=== PATIENT | female | born 1955 | race Caucasian/White ===

== ENCOUNTER 2024-06-03 13:51 | Inpatient (IN) ==
[2024-06-03] MEDS ORDERED: IOPAMIDOL 100 ML BOTTLE IV ONE ×2 (13:52)
[2024-06-03 14:44] LABS: Appearance,Urine Clear (Clear); Bacteria,Urine Few /hpf (0); Bilirubin,Urine Negative (Negative); Color,Urine Yellow; Glucose,Urine (UA) 100 mg/dL (Negative); Ketones,Urine Negative (Negative); Leukocyte Esterase,Urine Trace /uL (Negative); Nitrate,Urine Negative (Negative); PH,Urine 6.5 (5.0-9.0); Protein,Urine 100 mg/dL (Negative); Specific Gravity,Urine 1.015 (1.000-1.035); Urine Blood Trace-intact ery/mcL (Negative); Urine RBC 1 /hpf (0-3); Urine Squamous Epithelial Cell 13 /hpf (0-4); Urine WBC 8 /hpf (0-4); Urobilinogen,Urine Normal
[2024-06-03] MEDS: 0.9 % SODIUM CHLORIDE 1,000 ML IV ONE ×2 (15:28→19:08)
[2024-06-03] MEDS: HYDROmorphone 1 MG/ML SYRINGE IV ONE (15:28)
[2024-06-03] MEDS: ONDANSETRON 4 MG/2 ML VIAL IV ONE (15:29)
[2024-06-03 16:00] LABS: Basophils # (Auto) 0.01 K/mcL (0.00-0.30); Basophils % (Auto) 0.2 % (0.0-2.0); Eosinophils # (Auto) 0.01 K/mcL (0.00-0.70); Eosinophils % (Auto) 0.2 % (0.0-7.0); Hematocrit 37.6 % (34.1-44.9); Hemoglobin 12.5 g/dL (11.2-15.7); Lymphocytes # (Auto) 0.11 K/mcL (1.50-4.80); Lymphocytes % (Auto) 1.7 % (15.5-49.0); Mean Cell Volume 88.9 fL (80.0-100.0); Mean Corpuscular HGB Conc 33.2 g/dL (31.0-36.0); Mean Platelet Volume 9.9 fL (8.8-12.5); Monocytes # (Auto) 0.23 K/mcL (0.10-0.90); Monocytes % (Auto) 3.7 % (1.0-12.0); Neutrophils % (Auto) 93.9 % (38.0-78.0); Platelet Count 107 K/mcL (140-440); RBC 4.23 M/mcL (3.59-5.38); Red Cell Distribution Width 12.7 % (11.5-14.5); WBC 6.3 K/mcL (4.5-11.0)
[2024-06-03 16:21] LABS: ALT/SGPT 28 U/L (<40); AST/SGOT 39 U/L (<32); Albumin 3.8 gm/dL (3.2-5.2); Albumin/Globulin Ratio 1.2 (1.0-2.3); Alkaline Phosphatase 131 U/L (39-117); Bilirubin,Total 0.9 mg/dL (0.1-1.0); Blood Urea Nitrogen 22 mg/dL (8-23); Calcium 9.4 mg/dL (8.6-10.4); Carbon Dioxide 26 mmol/L (22-30); Chloride 88 mmol/L (96-108); Globulin 3.2 gm/dL (2.2-3.7); Glomerular Filtration Rate 47; Glucose 295 mg/dL (70-105); Potassium 3.7 mmol/L (3.3-5.1); Sodium 129 mmol/L (133-145)
[2024-06-03] MEDS: ACETAMINOPHEN 325 MG TABLET PO ONE (17:50)
[2024-06-03] MEDS: cefTRIAXone 1 GM VIAL IV ONE (19:04)
[2024-06-03] MEDS: IBUPROFEN 600 MG TABLET PO ONE (19:14)
[2024-06-03] MEDS: DOXYCYCLINE 100 MG in DEXTROSE 5% IN WATER 100 ML IV ONE (20:29)
[2024-06-04] MEDS: HYDROmorphone 1 MG/ML SYRINGE IV PRN (03:04)
[2024-06-04] MEDS: METHOCARBAMOL 1,000 MG/10 ML VIAL IV PRN (03:05)
[2024-06-04] MEDS: IBUPROFEN 600 MG TABLET PO ONE (11:09)
[2024-06-04] MEDS: cefTRIAXone 1 GM VIAL IV ONE (11:09)
[2024-06-04] MEDS: DOXYCYCLINE 100 MG in DEXTROSE 5% IN WATER 100 ML IV ONE (11:44)
[2024-06-04] MEDS: 0.9 % SODIUM CHLORIDE 1,000 ML IV SCH (11:44)
[2024-06-04 12:24] LABS: ALT/SGPT 28 U/L (<40); AST/SGOT 40 U/L (<32); Albumin 3.4 gm/dL (3.2-5.2); Albumin/Globulin Ratio 1.2 (1.0-2.3); Alkaline Phosphatase 139 U/L (39-117); Bilirubin,Total 0.6 mg/dL (0.1-1.0); Blood Urea Nitrogen 19 mg/dL (8-23); Carbon Dioxide 27 mmol/L (22-30); Chloride 93 mmol/L (96-108); Globulin 2.8 gm/dL (2.2-3.7); Glomerular Filtration Rate 58; Glucose 198 mg/dL (70-105); Potassium 3.6 mmol/L (3.3-5.1); Sodium 132 mmol/L (133-145)
[2024-06-04 12:25] LABS: Basophils # (Auto) 0.01 K/mcL (0.00-0.30); Basophils % (Auto) 0.2 % (0.0-2.0); Eosinophils # (Auto) 0 K/mcL (0.00-0.70); Eosinophils % (Auto) 0 % (0.0-7.0); Hematocrit 34.4 % (34.1-44.9); Hemoglobin 11.4 g/dL (11.2-15.7); Lymphocytes # (Auto) 0.08 K/mcL (1.50-4.80); Lymphocytes % (Auto) 1.7 % (15.5-49.0); Mean Cell Volume 89.8 fL (80.0-100.0); Mean Corpuscular HGB Conc 33.1 g/dL (31.0-36.0); Mean Platelet Volume 9.6 fL (8.8-12.5); Monocytes # (Auto) 0.29 K/mcL (0.10-0.90); Monocytes % (Auto) 6.3 % (1.0-12.0); Neutrophils % (Auto) 91.4 % (38.0-78.0); Platelet Count 92 K/mcL (140-440); RBC 3.83 M/mcL (3.59-5.38); Red Cell Distribution Width 12.8 % (11.5-14.5); WBC 4.6 K/mcL (4.5-11.0)
[2024-06-04] MEDS: ACETAMINOPHEN 1,000 MG/100 ML BAG IV ONE (12:53)
[2024-06-04] MEDS: VANCOMYCIN PER PHARMACY IV ONE (15:41)
[2024-06-04 15:51] LABS: Band Neutrophils % 26 % (0-10); Basophils % (Manual) 2 % (0-2); Lymphocytes % 1 % (15-49); Monocytes % (Manual) 6 % (1-12); Platelet Estimate DECREASED (Normal); Polychromasia FEW (None Seen); RBC Morphology ABNORMAL (Normal); Segmented Neutrophils % 65 % (38-78)
[2024-06-04] MEDS ORDERED: VANCOMYCIN PER PHARMACY IV SCH (15:52)
[2024-06-04] MEDS ORDERED: DEXTROSE 50% 50 ML VIAL IV PRN (15:52)
[2024-06-04] MEDS ORDERED: POLYETHYLENE GLYCOL 3350 17 GM PACKET PO PRN (15:52)
[2024-06-04] MEDS ORDERED: SENNOSIDES 1 TABLET PO PRN (15:52)
[2024-06-04] MEDS ORDERED: DEXTROSE 31 GM ORAL.SUSP PO PRN (15:52)
[2024-06-04] MEDS ORDERED: IPRATROPIUM/ALBUTEROL 3 ML AMPUL.NEB NEB PRN (15:52)
[2024-06-04] MEDS ORDERED: MAGNESIUM SULFATE 2 GM/50 ML BAG IV PRN (15:52)
[2024-06-04] MEDS: VANCOMYCIN 1,500 MG in 0.9 % SODIUM CHLORIDE 500 ML IV ONE (16:07)
[2024-06-04 16:36] LABS: Hemoglobin A1C 8.1 % Hgb (4.0-6.0)
[2024-06-04] MEDS: INSULIN LISPRO 1 UNIT/0.01 ML UNIT SQ SCH (16:54)
[2024-06-04] MEDS: morphine 4 MG/ML VIAL IV PRN (17:52)
[2024-06-04] MEDS: Diclofenac Sodium 1 % gel TOPICAL SCH (18:31)
[2024-06-04] MEDS: ONDANSETRON 4 MG/2 ML VIAL IV PRN (19:09)
[2024-06-04] MEDS: ATORVASTATIN 40 MG TABLET PO SCH (20:08)
[2024-06-04] MEDS: oxyCODONE/APAP 5/325MG TABLET PO PRN (20:08)
[2024-06-04] MEDS: ENOXAPARIN 40 MG/0.4 ML SYRINGE SQ SCH (20:09)
[2024-06-04] MEDS: DOCUSATE SODIUM 100 MG CAPSULE PO SCH (20:09)
[2024-06-04] MEDS: GABAPENTIN 300 MG CAPSULE PO SCH (20:09)
[2024-06-04] MEDS: INSULIN GLARGINE, HUMAN 1 UNIT/0.01 ML SQ SCH (20:10)
[2024-06-04] MEDS: 0.9 % SODIUM CHLORIDE 10 ML SYRINGE IV SCH (22:16)
[2024-06-05 06:56] LABS: Basophils # (Auto) 0.01 K/mcL (0.00-0.30); Basophils % (Auto) 0.3 % (0.0-2.0); Eosinophils # (Auto) 0.01 K/mcL (0.00-0.70); Eosinophils % (Auto) 0.3 % (0.0-7.0); Hematocrit 32.1 % (34.1-44.9); Hemoglobin 10.7 g/dL (11.2-15.7); Lymphocytes # (Auto) 0.14 K/mcL (1.50-4.80); Lymphocytes % (Auto) 3.6 % (15.5-49.0); Mean Cell Volume 89.9 fL (80.0-100.0); Mean Corpuscular HGB Conc 33.3 g/dL (31.0-36.0); Mean Platelet Volume 9.6 fL (8.8-12.5); Monocytes % (Auto) 7.8 % (1.0-12.0); Neutrophils % (Auto) 87.2 % (38.0-78.0); Platelet Count 79 K/mcL (140-440); RBC 3.57 M/mcL (3.59-5.38); Red Cell Distribution Width 12.8 % (11.5-14.5); WBC 3.9 K/mcL (4.5-11.0)
[2024-06-05 07:09] LABS: ALT/SGPT 28 U/L (<40); AST/SGOT 46 U/L (<32); Albumin 3.2 gm/dL (3.2-5.2); Albumin/Globulin Ratio 1.2 (1.0-2.3); Alkaline Phosphatase 176 U/L (39-117); Bilirubin,Direct 0.4 mg/dL (<0.3); Bilirubin,Total 0.6 mg/dL (0.1-1.0); Blood Urea Nitrogen 21 mg/dL (8-23); Carbon Dioxide 26 mmol/L (22-30); Chloride 94 mmol/L (96-108); Globulin 2.7 gm/dL (2.2-3.7); Glomerular Filtration Rate 58; Glucose 148 mg/dL (70-105); Lactate Dehydrogenase 170 U/L (135-225); Phosphorous 2.5 mg/dL (2.5-4.5); Potassium 3.2 mmol/L (3.3-5.1); Sodium 132 mmol/L (133-145); Triglycerides 97 mg/dL (<150); Uric Acid 6.3 mg/dL (2.5-8.0)
[2024-06-05] MEDS ORDERED: INSULIN GLARGINE, HUMAN 1 UNIT/0.01 ML SQ SCH (09:00)
[2024-06-05] MEDS: SPIRONOLACTONE 25 MG TABLET PO SCH (09:06)
[2024-06-05] MEDS: cefTRIAXone 2 GM in DEXTROSE 5% IN WATER 50 ML IV SCH (09:07)
[2024-06-05] MEDS: POTASSIUM CHLORIDE 20 MEQ TABLET PO PRN (09:07)
[2024-06-05] MEDS: INSULIN GLARGINE, HUMAN 1 UNIT/0.01 ML SQ SCH ×2 (09:08→22:04)
[2024-06-05] MEDS: metFORMIN 500 MG TAB.XL.24H PO SCH (09:20)
[2024-06-05] MEDS: GLIMEPIRIDE 2 MG TABLET PO SCH (09:20)
[2024-06-05] MEDS: LISINOPRIL 20 MG TABLET PO SCH (09:43)
[2024-06-05 09:58] LABS: Band Neutrophils % 11 % (0-10); Lymphocytes % 3 % (15-49); Monocytes % (Manual) 9 % (1-12); Platelet Estimate DECREASED (Normal); RBC Morphology NORMAL (Normal); Segmented Neutrophils % 77 % (38-78)
[2024-06-05] MEDS: FUROSEMIDE 40 MG/4 ML VIAL IV ONE (10:00)
[2024-06-05] MEDS: VANCOMYCIN 1,500 MG in 0.9 % SODIUM CHLORIDE 500 ML IV SCH (10:00)
[2024-06-05] MEDS: LIDOCAINE 4% TOP PATCH TOPICAL SCH (10:43)
[2024-06-05] MEDS: LOSARTAN 25 MG TABLET PO SCH (11:00)
[2024-06-05] MEDS: METHOCARBAMOL 1,000 MG/10 ML VIAL IV PRN (14:09)
[2024-06-06] MEDS: INSULIN GLARGINE, HUMAN 1 UNIT/0.01 ML SQ ONE (00:11)
[2024-06-06 06:56] LABS: Hematocrit 33.4 % (34.1-44.9); Hemoglobin 11.1 g/dL (11.2-15.7); Mean Cell Volume 89.5 fL (80.0-100.0); Mean Corpuscular HGB Conc 33.2 g/dL (31.0-36.0); Mean Platelet Volume 9.8 fL (8.8-12.5); Platelet Count 99 K/mcL (140-440); RBC 3.73 M/mcL (3.59-5.38); Red Cell Distribution Width 12.5 % (11.5-14.5); WBC 5.3 K/mcL (4.5-11.0)
[2024-06-06 07:18] LABS: ALT/SGPT 32 U/L (<40); AST/SGOT 59 U/L (<32); Albumin 3.2 gm/dL (3.2-5.2); Alkaline Phosphatase 244 U/L (39-117); Bilirubin,Direct 0.4 mg/dL (<0.3); Bilirubin,Total 0.6 mg/dL (0.1-1.0); Blood Urea Nitrogen 20 mg/dL (8-23); Calcium 9.8 mg/dL (8.6-10.4); Carbon Dioxide 26 mmol/L (22-30); Chloride 91 mmol/L (96-108); Globulin 3.1 gm/dL (2.2-3.7); Glomerular Filtration Rate 58; Glucose 82 mg/dL (70-105); Lactate Dehydrogenase 206 U/L (135-225); Phosphorous 2.4 mg/dL (2.5-4.5); Sodium 132 mmol/L (133-145); Triglycerides 93 mg/dL (<150)
[2024-06-06] MEDS: KETOROLAC 15 MG/ML VIAL IV PRN (07:56)
[2024-06-06 08:33] LABS: Band Neutrophils % 9 % (0-10); Lymphocytes % 6 % (15-49); Monocytes % (Manual) 5 % (1-12); Platelet Estimate DECREASED (Normal); RBC Morphology NORMAL (Normal); Segmented Neutrophils % 80 % (38-78)
[2024-06-06] MEDS ORDERED: INSULIN GLARGINE, HUMAN 1 UNIT/0.01 ML SQ SCH (09:00)
[2024-06-06] MEDS: FUROSEMIDE 40 MG/4 ML VIAL IV ONE ×2 (09:05→16:17)
[2024-06-06] MEDS: INSULIN GLARGINE, HUMAN 1 UNIT/0.01 ML SQ SCH (09:05)
[2024-06-06] MEDS: ENOXAPARIN 40 MG/0.4 ML SYRINGE SQ SCH (09:06)
[2024-06-06] MEDS: POTASSIUM CHLORIDE 20 MEQ TABLET PO PRN (09:23)
[2024-06-06] MEDS: VANCOMYCIN 1,250 MG in 0.9 % SODIUM CHLORIDE 500 ML IV SCH (13:34)
[2024-06-07 06:40] LABS: ALT/SGPT 62 U/L (<40); AST/SGOT 140 U/L (<32); Albumin 2.8 gm/dL (3.2-5.2); Albumin/Globulin Ratio 0.8 (1.0-2.3); Alkaline Phosphatase 278 U/L (39-117); Bilirubin,Direct 0.3 mg/dL (<0.3); Bilirubin,Total 0.5 mg/dL (0.1-1.0); Blood Urea Nitrogen 26 mg/dL (8-23); Carbon Dioxide 25 mmol/L (22-30); Chloride 93 mmol/L (96-108); Globulin 3.4 gm/dL (2.2-3.7); Glomerular Filtration Rate 58; Glucose 64 mg/dL (70-105); Lactate Dehydrogenase 249 U/L (135-225); Phosphorous 2.7 mg/dL (2.5-4.5); Potassium 2.9 mmol/L (3.3-5.1); Sodium 133 mmol/L (133-145); Triglycerides 94 mg/dL (<150); Uric Acid 6.5 mg/dL (2.5-8.0)
[2024-06-07] MEDS: ceFAZolin 1 GM VIAL IV SCH (10:18)
[2024-06-07] MEDS: INSULIN GLARGINE, HUMAN 1 UNIT/0.01 ML SQ SCH (10:19)
[2024-06-07] MEDS: ALBUMIN HUMAN 12.5 GM/50 ML VIAL IV ONE (10:25)
[2024-06-07] MEDS: FUROSEMIDE 40 MG/4 ML VIAL IV ONE ×2 (12:07→12:10)
[2024-06-07] MEDS: POTASSIUM CHLORIDE 40 MEQ in DEXTROSE 5% IN WATER 500 ML IV PRN (12:19)
[2024-06-07] MEDS: ACETAMINOPHEN 325 MG TABLET PO PRN (14:46)
[2024-06-07] MEDS: POTASSIUM CHLORIDE 20 MEQ TABLET PO SCH (17:26)
[2024-06-07] MEDS: fentaNYL 100 MCG/2 ML VIAL IV PRN (20:50)
[2024-06-08] MEDS: METHOCARBAMOL 1,000 MG/10 ML VIAL IV PRN (04:41)
[2024-06-08] MEDS: fentaNYL 100 MCG/2 ML VIAL IV PRN ×2 (04:42→08:01)
[2024-06-08 06:45] LABS: ALT/SGPT 38 U/L (<40); AST/SGOT 74 U/L (<32); Albumin/Globulin Ratio 0.9 (1.0-2.3); Alkaline Phosphatase 250 U/L (39-117); Bilirubin,Direct < 0.2 mg/dL (0-0.3); Bilirubin,Total 0.4 mg/dL (0.1-1.0); Blood Urea Nitrogen 25 mg/dL (8-23); Calcium 9.4 mg/dL (8.6-10.4); Carbon Dioxide 25 mmol/L (22-30); Chloride 92 mmol/L (96-108); Globulin 3.2 gm/dL (2.2-3.7); Glomerular Filtration Rate 66; Glucose 77 mg/dL (70-105); Lactate Dehydrogenase 187 U/L (135-225); Phosphorous 2.8 mg/dL (2.5-4.5); Potassium 3.5 mmol/L (3.3-5.1); Sodium 131 mmol/L (133-145); Triglycerides 105 mg/dL (<150); Uric Acid 6.2 mg/dL (2.5-8.0)
[2024-06-08] MEDS: fentaNYL 100 MCG/2 ML VIAL ONE (07:18)
[2024-06-08] MEDS: fentaNYL 25 MCG PATCH TOPICAL SCH (08:25)
[2024-06-08] MEDS ORDERED: POTASSIUM CHLORIDE 20 MEQ TABLET PO PRN ×2 (11:24→11:27)
[2024-06-08] MEDS: CALCIUM CARBONATE 500 MG TAB.CHEW CHEWED PRN (11:34)
[2024-06-08] MEDS ORDERED: GADOBENATE DIMEGLUMINE 20 ML/VIAL IV ONE (13:44)
[2024-06-08] MEDS: GABAPENTIN 300 MG CAPSULE PO SCH (15:00)
[2024-06-08] MEDS: NAFCILLIN 2 GM in 0.9 % SODIUM CHLORIDE 50 ML IV SCH (16:36)
[2024-06-08] MEDS: INSULIN GLARGINE, HUMAN 1 UNIT/0.01 ML SQ SCH (20:46)
[2024-06-09] MEDS ORDERED: INSULIN GLARGINE, HUMAN 1 UNIT/0.01 ML SQ SCH (09:00)
== END 2024-06-08 20:55 | disposition short-term general hospital (02) | DRG 94 ==
LOC: MEDSUR 13:51 → ED 13:51 → OBSVTOIN 06-04 15:47 → MEDSUR 06-04 15:51
PROVIDERS: ADMIT Internal Medicine; ATTEND Internal Medicine